=== PATIENT | male | born 1975 | race Caucasian/White ===

== ENCOUNTER 2018-06-30 23:17 | Emergency (ER) | payer OTHER ==
[~2018-06-30] VITALS: Ht 182.9 cm; Wt 90.3 kg
[~2018-06-30 23:17] MED LIST: AZIT500 PO; Ativan1 MG PO; CEPH500 PO; Colace100 MG PO; HYDACE5 PO; IBUP800 PO; MECL12.5 PO; Naprosyn500 MG PO; Norco 10-325 T1 EACH PO; OMEP20ER PO; PANT40 PO; PROCODE120 PO; RANI150 PO; RXHYDACE PO; RXIBUP800 PO; SULF10OPSA OD; SULTRIDS PO; Ultram50 MG PO; Zithromax250 MG PO; Zofran Odt4 MG SL
[2018-07-01] MEDS ORDERED: CYCL10 PO (00:02)
[2018-07-01] MEDS ORDERED: Prednisone20 MG PO (00:02)
[2018-07-01] MEDS ORDERED: Naprosyn500 MG PO (00:02)
== END 2018-07-01 00:21 | disposition home or self-care (01) ==
LOC: ER 23:17
DX: M54.42 Lumbago with sciatica, left side (principal); F17.210 Nicotine dependence, cigarettes, uncomplicated; I25.2 Old myocardial infarction; Z79.899 Other long term (current) drug therapy
CPT/HCPCS: 99283; J7512

== ENCOUNTER 2018-07-11 17:21 | Emergency (ER) | payer OTHER ==
[~2018-07-11] VITALS: Ht 182.9 cm; Wt 90.3 kg
[~2018-07-11 17:21] MED LIST changes: +CYCL10 PO; +Prednisone20 MG PO
== END 2018-07-11 19:10 | disposition home or self-care (01) ==
LOC: ER 17:21
DX: N43.3 Hydrocele, unspecified (principal); Z79.899 Other long term (current) drug therapy; F43.10 Post-traumatic stress disorder, unspecified; I25.2 Old myocardial infarction; F17.210 Nicotine dependence, cigarettes, uncomplicated
CPT/HCPCS: 76870; 99284-25

== ENCOUNTER 2020-03-24 19:16 | Emergency (ER) | payer OTHER ==
[~2020-03-24] VITALS: Ht 182.9 cm; Wt 95.2 kg
[2020-03-24 20:00] LABS: BASOPHILS ABSOLUTE AUTO 0.07 K/mm3 (0.00-0.23); BASOPHILS PERCENT AUTO 1 % (0-2); EOSINOPHILS ABSOLUTE AUTO 0.25 K/mm3 (0.00-0.68); EOSINOPHILS PERCENT AUTO 3 % (0-6); Hematocrit 47.4 % (37.0-53.0); Hemoglobin 15.7 g/dL (13.5-17.5); IMMATURE GRAN ABSOLUTE AUTO 0.04 K/mm3 (0.00-0.10); IMMATURE GRAN PERCENT AUTO 0 % (0-1); LYMPHOCYTES ABSOLUTE AUTO 3.58 K/mm3 (0.84-5.20); LYMPHOCYTES PERCENT AUTO 36 % (21-46); MONOCYTES ABSOLUTE AUTO 0.88 K/mm3 (0.16-1.47); MONOCYTES PERCENT AUTO 9 % (4-13); Mean Corpuscular HGB Conc 33.1 g/dL (31.5-36.5); Mean Corpuscular Volume 88 fL (80-100); Mean Platelet Volume 10.5 fL (9.1-12.4); NEUTROPHILS PERCENT AUTO 52 % (41-73); Platelet Count 313 K/mm3 (150-400); RDW Coefficient Variation 12.7 % (11.7-14.2); RDW Standard Deviation 40.8 fL (35.1-46.3); Red Blood Cell Count 5.42 M/mm3 (4.30-5.90); White Blood Cell Count 10.02 K/mm3 (4.00-11.30)
[2020-03-24 20:48] LABS: Alanine Aminotransfer (ALT/SGP 49 U/L (12-78); Albumin, Blood 3.7 g/dL (3.4-5.0); Albumin/Globulin Ratio 0.9 (0.8-1.8); Alk Phos 83 U/L (50-136); Anion Gap 6 mmol/L (6-16); Aspartate Aminotrans (AST/SGOT 22 U/L (12-37); Bilirubin, Total 0.4 mg/dL (0.1-1.0); Blood Urea Nitrogen 12 mg/dL (8-24); Bun/Creatinine Ratio 16.9 (12.0-20.0); CO2, Blood 27 mmol/L (21-32); Chloride, Blood 106 mmol/L (98-108); Creatinine, Blood 0.71 mg/dL (0.60-1.20); Globulin, Blood 3.9 g/dL (2.2-4.0); Glomerular Filtration Rate >60 (60-); Glucose, Blood 91 mg/dL (70-99); Potassium, Blood 3.8 mmol/L (3.5-5.5); Sodium, Blood 139 mmol/L (136-145); Total Protein, Blood 7.6 g/dL (6.4-8.2)
[2020-03-24 22:39] LABS: Source, Urine Clean Catch
[2020-03-24 22:40] LABS: Bilirubin, Urine Neg (Neg); Blood, Urine Neg (Neg); Glucose Qualitative, Urine Neg (Neg); Ketones, Urine Neg (Neg); Leukocyte Esterase, Urine Neg (Neg); Nitrite, Urine Neg (Neg); Protein, Urine Neg (Neg); Specific Gravity, Urine 1.015 (1.003-1.022); Urobilinogen, Urine NORM (Normal)
[2020-03-24 22:42] LABS: Appearance, Urine Clear (Clear); Color, Urine Yellow (P-Yellow)
== END 2020-03-24 22:40 | disposition home or self-care (01) ==
LOC: ER 19:16
PROVIDERS: Physician Assistant
DX: K52.9 Noninfective gastroenteritis and colitis, unspecified (principal); F17.210 Nicotine dependence, cigarettes, uncomplicated
CPT/HCPCS: 36415; 80053; 81003; 83690; 85025; 96360; 99284-25; J2405; J7030

== ENCOUNTER 2020-05-28 15:38 | Emergency (ER) | payer OTHER ==
[~2020-05-28] VITALS: Ht 182.9 cm; Wt 95.2 kg
[2020-05-28] MEDS ORDERED: Amoxicillin875 MG PO (16:11)
== END 2020-05-28 16:16 | disposition home or self-care (01) ==
LOC: ER 15:38
DX: H66.91 Otitis media, unspecified, right ear (principal); F17.210 Nicotine dependence, cigarettes, uncomplicated; I25.2 Old myocardial infarction
CPT/HCPCS: 99284; A9270

== ENCOUNTER 2020-11-16 06:04 | Observation (INO) | payer OTHER ==
[~2020-11-16] VITALS: Ht 182.9 cm; Wt 95.2 kg
[~2020-11-16 06:04] MED LIST changes: +Amoxicillin875 MG PO
[2020-11-16 07:02] LABS: BASOPHILS ABSOLUTE AUTO 0.08 K/mm3 (0.00-0.23); BASOPHILS PERCENT AUTO 1 % (0-2); EOSINOPHILS ABSOLUTE AUTO 0.24 K/mm3 (0.00-0.68); EOSINOPHILS PERCENT AUTO 2 % (0-6); Hematocrit 45.1 % (37.0-53.0); Hemoglobin 15.4 g/dL (13.5-17.5); IMMATURE GRAN ABSOLUTE AUTO 0.04 K/mm3 (0.00-0.10); IMMATURE GRAN PERCENT AUTO 0 % (0-1); LYMPHOCYTES ABSOLUTE AUTO 3.86 K/mm3 (0.84-5.20); LYMPHOCYTES PERCENT AUTO 28 % (21-46); MONOCYTES ABSOLUTE AUTO 1.26 K/mm3 (0.16-1.47); MONOCYTES PERCENT AUTO 9 % (4-13); Mean Corpuscular HGB 29.5 pg (26.0-34.0); Mean Corpuscular HGB Conc 34.1 g/dL (31.5-36.5); Mean Corpuscular Volume 86 fL (80-100); Mean Platelet Volume 10.4 fL (9.1-12.4); NEUTROPHILS ABSOLUTE AUTO 8.32 K/mm3 (1.96-9.15); NEUTROPHILS PERCENT AUTO 60 % (41-73); Platelet Count 325 K/mm3 (150-400); RDW Coefficient Variation 13.4 % (11.7-14.2); RDW Standard Deviation 42.5 fL (35.1-46.3); Red Blood Cell Count 5.22 M/mm3 (4.30-5.90)
[2020-11-16 07:22] LABS: Alanine Aminotransfer (ALT/SGP 31 U/L (12-78); Albumin, Blood 3.7 g/dL (3.4-5.0); Albumin/Globulin Ratio 0.9 (0.8-1.8); Alk Phos 68 U/L (50-136); Anion Gap 8 mmol/L (6-16); Aspartate Aminotrans (AST/SGOT 14 U/L (12-37); Bilirubin, Total 0.4 mg/dL (0.1-1.0); Blood Urea Nitrogen 13 mg/dL (8-24); Bun/Creatinine Ratio 13.3 (12.0-20.0); CO2, Blood 24 mmol/L (21-32); Calcium, Blood 9.1 mg/dL (8.5-10.1); Chloride, Blood 107 mmol/L (98-108); Creatinine, Blood 0.98 mg/dL (0.60-1.20); Ethanol (Alcohol), Blood, Med <3 mg/dL; Glomerular Filtration Rate >60 (60-); Glucose, Blood 110 mg/dL (70-99); Potassium, Blood 3.4 mmol/L (3.5-5.5); Salicylate 3.9 mg/dL (2.8-20.0); Sodium, Blood 139 mmol/L (136-145); Total Protein, Blood 7.7 g/dL (6.4-8.2)
[2020-11-16 07:25] LABS: Acetaminophen, Random <2.0 ug/mL (10.0-30.0)
[2020-11-16 07:56] LABS: Source, Urine Clean Catch
[2020-11-16 08:00] LABS: Bilirubin, Urine Neg (Neg); Blood, Urine Neg (Neg); Glucose Qualitative, Urine Neg (Neg); Ketones, Urine 1+ (Neg); Leukocyte Esterase, Urine Neg (Neg); Nitrite, Urine Neg (Neg); Protein, Urine Neg (Neg); Specific Gravity, Urine 1.015 (1.003-1.022); Urobilinogen, Urine NORM (Normal)
[2020-11-16 08:03] LABS: SARS-Cov-2 (COVID-19) PCR, MMC NEGATIVE (NEGATIVE)
[2020-11-16 08:03] LABS: Appearance, Urine Clear (Clear); Color, Urine Pale Yellow (P-Yellow)
[2020-11-16 08:13] LABS: U Amphetamine Screen Not Detected; U Barbituate Screen Not Detected; U Benzodiazapine Screen Not Detected; U Buprenorphine Screen Not Detected; U Cannabinoids Screen Not Detected; U Cocaine Screen Not Detected; U Methadone Screen Not Detected; U Methamphetamine Screen Not Detected; U Opiates Screen Not Detected; U Oxycodone Screen Not Detected; U Phencyclidine Screen Not Detected; U Propoxyphene Screen Not Detected
== END 2020-11-16 19:56 ==
LOC: ER 06:04 → EOR 06:05
PROVIDERS: ADMIT Emergency Medicine
DX: F33.2 Major depressive disorder, recurrent severe without psychotic features (principal); I25.2 Old myocardial infarction; F17.200 Nicotine dependence, unspecified, uncomplicated; E11.9 Type 2 diabetes mellitus without complications; Z20.822 Contact with and (suspected) exposure to COVID-19
CPT/HCPCS: 80053; 81003; 85025; 99285; A9270; G0378; G0480; Q3014; U0004

== ENCOUNTER 2020-12-15 14:05 | Emergency (ER) | payer OTHER ==
[~2020-12-15] VITALS: Ht 182.9 cm; Wt 95.2 kg
[2020-12-15] MEDS ORDERED: Prozac20 MG PO ×2 (14:18→14:52)
[2020-12-15] MEDS ORDERED: HYDHCL25 (14:18)
[2020-12-15] MEDS ORDERED: OMEP20ER PO ×2 (14:19→14:52)
[2020-12-15] MEDS ORDERED: TRAZ100 PO ×2 (14:19→14:52)
[2020-12-15] MEDS ORDERED: HYDHCL25 PO (14:52)
== END 2020-12-15 15:00 | disposition home or self-care (01) ==
LOC: ER 14:05
DX: F43.10 Post-traumatic stress disorder, unspecified (principal); Z76.0 Encounter for issue of repeat prescription; I25.2 Old myocardial infarction; F17.210 Nicotine dependence, cigarettes, uncomplicated; Z79.899 Other long term (current) drug therapy
CPT/HCPCS: 99281

== ENCOUNTER 2022-11-15 16:05 | Emergency (ER) | payer OTHER ==
[~2022-11-15] VITALS: Ht 177.8 cm; Wt 91.2 kg
[~2022-11-15 16:05] MED LIST changes: +HYDHCL25; +HYDHCL25 PO; +Prozac20 MG PO; +TRAZ100 PO
[2022-11-15 16:33] LABS: BASOPHILS PERCENT AUTO 1 % (0-2); EOSINOPHILS ABSOLUTE AUTO 0.27 K/mm3 (0.00-0.68); EOSINOPHILS PERCENT AUTO 2 % (0-6); Hematocrit 45.3 % (37.0-53.0); Hemoglobin 15.3 g/dL (13.5-17.5); IMMATURE GRAN ABSOLUTE AUTO 0.06 K/mm3 (0.00-0.10); IMMATURE GRAN PERCENT AUTO 1 % (0-1); LYMPHOCYTES ABSOLUTE AUTO 3.74 K/mm3 (0.84-5.20); LYMPHOCYTES PERCENT AUTO 33 % (21-46); MONOCYTES ABSOLUTE AUTO 1.13 K/mm3 (0.16-1.47); MONOCYTES PERCENT AUTO 10 % (4-13); Mean Corpuscular HGB 29.2 pg (26.0-34.0); Mean Corpuscular HGB Conc 33.8 g/dL (31.5-36.5); Mean Corpuscular Volume 87 fL (80-100); Mean Platelet Volume 9.6 fL (9.1-12.4); NEUTROPHILS ABSOLUTE AUTO 5.91 K/mm3 (1.96-9.15); NEUTROPHILS PERCENT AUTO 53 % (41-73); Platelet Count 327 K/mm3 (150-400); RDW Coefficient Variation 13.3 % (11.7-14.2); RDW Standard Deviation 41.8 fL (35.1-46.3); Red Blood Cell Count 5.24 M/mm3 (4.30-5.90); White Blood Cell Count 11.21 K/mm3 (4.00-11.30)
[2022-11-15 16:51] LABS: Albumin/Globulin Ratio 1.1 (0.8-1.8); Bilirubin, Total 0.6 mg/dL (0.1-1.0); Bun/Creatinine Ratio 18.3 (12.0-20.0); Calcium, Blood 9.5 mg/dL (8.5-10.1); Creatinine, Blood 0.87 mg/dL (0.60-1.20); Globulin, Blood 3.8 g/dL (2.2-4.0); Potassium, Blood 4.2 mmol/L (3.5-5.5); Total Protein, Blood 7.8 g/dL (6.4-8.2)
[2022-11-15 17:14] LABS: Influenza A, PCR NEGATIVE (NEGATIVE); Influenza B, PCR NEGATIVE (NEGATIVE); Resp Syncytial Virus, PCR NEGATIVE (NEGATIVE); SARS-Cov-2 (COVID-19) PCR, MMC NEGATIVE (NEGATIVE)
[2022-11-15 19:30] VITALS: BP 128/87
== END 2022-11-15 19:57 | disposition home or self-care (01) ==
LOC: ER 16:05
PROVIDERS: Student in an Organized Health Care Education/Training Program
DX: B34.9 Viral infection, unspecified (principal); I25.2 Old myocardial infarction; F17.210 Nicotine dependence, cigarettes, uncomplicated; Z20.822 Contact with and (suspected) exposure to COVID-19
CPT/HCPCS: 0241U; 80053; 85025; 96360; 96361; 99283-25; J7030

== ENCOUNTER 2024-06-24 16:50 | Observation (INO) | payer OTHER ==
[~2024-06-24] VITALS: Ht 177.8 cm; Wt 94.3 kg
[2024-06-24] MEDS ORDERED: CefTRIAXone Sodium 1,000 MG in NS 50 ML IV ONE (20:25)
[2024-06-24] MEDS ORDERED: MetroNIDAZOLE 500MG/NS 100 ml 100 ML IV ONE (20:25)
[2024-06-24] MEDS ORDERED: NS 1,000 ML IV SCH (20:25)
[2024-06-24] MEDS ORDERED: FentaNYL Citrate 50 MCG/ML 2 ML Injection IV ONE (20:35)
[2024-06-24] MEDS ORDERED: Ondansetron HCl 2 MG / ML 2ML Vial IV ONE (20:35)
[2024-06-24] MEDS ORDERED: Ondansetron HCl 2 MG / ML 2ML Vial IV PRN (22:40)
[2024-06-24] MEDS ORDERED: NS 1,000 ML IV ONE (22:40)
[2024-06-24] MEDS ORDERED: FentaNYL Citrate 50 MCG/ML 2 ML Injection IV PRN (22:40)
[2024-06-24] MEDS ORDERED: Acetaminophen 325 MG TABLET PO PRN (22:40)
[2024-06-25] VITALS (20 sets, daily range): BP systolic 112–154; BP diastolic 68–93
[2024-06-25] MEDS ORDERED: Ampicillin Sod/Sulbactam Sod 3 GM in NS 100 ML IV SCH
--- NOTE | 2024-06-25 05:01 | NUR ---
ORTHOPEDIC DESIGNER SUMMARY PT IS A NEW ADMIT FROM THE ED TONIGHT, HERE FOR ACUTE APPY. PT TO HAVE SURGERY LATER TODAY. AAOX4 AND PLEASANT. INDEPENDENT WITH AMBULATION. NPO SINCE MIDNIGHT. PT REPORTS LLQ ABD PAIN IS MINIMAL WHILE RESTING AND ONLY BOTHERS HIM WHEN HE'S AMBULATING. PT HAS DENIED NEEDING PAIN MEDS THUS FAR. DENIES NAUESEA. VSS, WILL CONTINUE TO MONITOR.
[2024-06-25 05:03] LABS: BASOPHILS ABSOLUTE AUTO 0.08 K/mm3 (0.00-0.23); BASOPHILS PERCENT AUTO 1 % (0-2); EOSINOPHILS ABSOLUTE AUTO 0.22 K/mm3 (0.00-0.68); EOSINOPHILS PERCENT AUTO 2 % (0-6); Hematocrit 40.9 % (37.0-53.0); Hemoglobin 14.3 g/dL (13.5-17.5); IMMATURE GRAN ABSOLUTE AUTO 0.04 K/mm3 (0.00-0.10); IMMATURE GRAN PERCENT AUTO 0 % (0-1); LYMPHOCYTES ABSOLUTE AUTO 3.49 K/mm3 (0.84-5.20); LYMPHOCYTES PERCENT AUTO 29 % (21-46); MONOCYTES PERCENT AUTO 12 % (4-13); Mean Corpuscular HGB 29.2 pg (26.0-34.0); Mean Corpuscular Volume 84 fL (80-100); Mean Platelet Volume 10.3 fL (9.1-12.4); NEUTROPHILS ABSOLUTE AUTO 6.84 K/mm3 (1.96-9.15); NEUTROPHILS PERCENT AUTO 56 % (41-73); Platelet Count 252 K/mm3 (150-400); RDW Coefficient Variation 12.4 % (11.7-14.2); RDW Standard Deviation 37.8 fL (35.1-46.3); White Blood Cell Count 12.17 K/mm3 (4.00-11.30)
[2024-06-25 05:54] LABS: Albumin, Blood 2.8 g/dL (3.4-5.0); Albumin/Globulin Ratio 0.8 (0.8-1.8); Bilirubin, Total 0.3 mg/dL (0.1-1.0); Bun/Creatinine Ratio 21.4 (12.0-20.0); Calcium, Blood 8.5 mg/dL (8.5-10.1); Creatinine, Blood 0.7 mg/dL (0.60-1.20); Globulin, Blood 3.6 g/dL (2.2-4.0); Potassium, Blood 3.6 mmol/L (3.5-5.5); Total Protein, Blood 6.4 g/dL (6.4-8.2)
[2024-06-25] MEDS ORDERED: Insulin Human Lispro 100 Units/ML 3ML Syringe SC SCH ×4 (07:30→16:30)
[2024-06-25] MEDS ORDERED: HYDROmorphone HCl/Pf 1MG SYR IV PRN (08:40)
[2024-06-25] MEDS ORDERED: Prochlorperazine Edisylate 10 mg Vial IV PRN (08:40)
[2024-06-25] MEDS ORDERED: Polyethylene Glycol 3350 17 gm PO PRN (08:40)
[2024-06-25] MEDS ORDERED: Naloxone HCl 0.4MG / ML 1ML Vial IV PRN (08:40)
[2024-06-25] MEDS ORDERED: LORazepam 2 MG/ML 1ML Injection IV PRN (08:45)
[2024-06-25] MEDS ORDERED: Ketorolac Tromethamine 15mg Vial IV PRN (08:50)
[2024-06-25] MEDS ORDERED: Docusate Sodium 100 MG Cap PO SCH (09:00)
[2024-06-25] MEDS ORDERED: Insulin Human Lispro 100 Units/ML 3ML Syringe SC ONE ×2 (10:00→10:35)
[2024-06-25] MEDS ORDERED: NS 1,000 ML IV SCH (10:25)
[2024-06-25] MEDS ORDERED: Bupivacaine 0.25% Epi 1:200000 30 ML Vial ONE (11:15)
[2024-06-25] MEDS ORDERED: FentaNYL Citrate 50 MCG/ML 2 ML Injection ONE (11:17)
[2024-06-25] MEDS ORDERED: propofoL 20 ML IV ONE (11:17)
[2024-06-25] MEDS ORDERED: Dexamethasone Sod Phos 10 MG/ML 1ML VIAL ONE (11:19)
[2024-06-25] MEDS ORDERED: Ondansetron HCl 2 MG / ML 2ML Vial ONE (11:19)
[2024-06-25] MEDS ORDERED: SuccINYLCHOLINE Chloride 100 MG/5 ML 5MLSYR ONE (11:19)
[2024-06-25] MEDS ORDERED: Rocuronium Bromide 10 MG/ML 5ML Injection IV ONE (11:19)
[2024-06-25] MEDS ORDERED: HYDROmorphone HCl/Pf 1MG SYR ONE (11:49)
[2024-06-25] MEDS ORDERED: Sugammadex Sodium 200 MG/2ML SDV (100 MG/ML) ONE (12:13)
--- NOTE | 2024-06-25 12:19 | NUR ---
PT TAKEN TO DAY SURGERY AT 11:20. KALINA RUTLEDGE NOTIFIED OF BLOOD GLUCOSE OF 219.
[2024-06-25] MEDS ORDERED: OxyCODONE HCL 5 MG TAB PO PRN (13:25)
--- NOTE | 2024-06-25 14:10 | NUR ---
PT ARRIVED BACK TO THE ROOM FROM PACU. PT IS ALERT/ORIENTED. PAIN MANAGED. VSS. PT ON 4L O2 VIA NC. CALL LIGHT PLACED WITHIN REACH.
--- NOTE | 2024-06-25 19:33 | NUR ---
SHIFT SUMMARY PT IS POD#[address] OLMOS. PAIN MANAGED WITH PO PAIN MEDICATION. DIET HAS BEEN ADVANCED TO REGULAR. PT WAS EDUCATED TO START WITH SMALL AMOUNTS AND EAT SLOWLY, PT ATE SLOWLY BUT CONSUMED 100% OF HIS DINNER TRAY. PT HAS BEEN AMBULATING IN THE HALLWAYS. HE REPORTS HE HAS BEEN ABLE TO PASS FLATUS. PT'S S/O IS AT THE BEDSIDE FOR SUPPORT. BEDSIDE REPORT GIVEN TO CHANO RUTLEDGE.
[2024-06-25] MEDS ORDERED: TraZODone HCl 100 MG Tab PO SCH (21:00)
[2024-06-26 00:12] VITALS: BP 128/90
[2024-06-26 04:55] LABS: Hemoglobin 13.2 g/dL (13.5-17.5); Mean Corpuscular HGB 29.1 pg (26.0-34.0); Mean Corpuscular HGB Conc 34.7 g/dL (31.5-36.5); Mean Corpuscular Volume 84 fL (80-100); Mean Platelet Volume 10.4 fL (9.1-12.4); Platelet Count 261 K/mm3 (150-400); RDW Coefficient Variation 12.3 % (11.7-14.2); RDW Standard Deviation 36.9 fL (35.1-46.3); Red Blood Cell Count 4.54 M/mm3 (4.30-5.90); White Blood Cell Count 11.28 K/mm3 (4.00-11.30)
[2024-06-26 05:05] VITALS: BP 135/87
[2024-06-26 05:26] LABS: Albumin, Blood 2.8 g/dL (3.4-5.0); Albumin/Globulin Ratio 0.8 (0.8-1.8); Bilirubin, Total 0.6 mg/dL (0.1-1.0); Bun/Creatinine Ratio 17.7 (12.0-20.0); Calcium, Blood 8.3 mg/dL (8.5-10.1); Creatinine, Blood 0.62 mg/dL (0.60-1.20); Globulin, Blood 3.7 g/dL (2.2-4.0); Magnesium, Blood 2.1 mg/dL (1.6-2.4); Potassium, Blood 3.8 mmol/L (3.5-5.5); Total Protein, Blood 6.5 g/dL (6.4-8.2)
--- NOTE | 2024-06-26 05:37 | NUR ---
SHIFT SUMMARY PT POD 0 LAP FRANDY. PT HAS BEEN UP AND AMBULATING, VOIDING, TOLERATING PO INTAKE. APPETITE IS GOOD. SURGICAL SITE WNL. PAIN CONTROLLED WITH MEDS PER EMAR. PT REPORTS CONSTIPATION, REPORTS THAT HIS LAST BM WAS ON WEDNESDAY 06/21, BOWEL CARE STARTED. IV ANTIBIOTICS PER EMAR. BG IN THE 300'S WITH HS CHECK. PT EDUCATED ON APPROPRIATE DIET MODIFICATIONS TO BETTER CONTROL BG. PT COVERED PER SCALE, BG DOWN TO THE 2OO'S WITH AM LAB CHECK. PLAN OF CARE REMAINS UNCHANGED, BED IN LOWEST POSITION, CALL LIGHT WITHIN REACH.
[2024-06-26 07:11] VITALS: BP 120/88
[2024-06-26] MEDS ORDERED: OXYC5 PO (12:11)
[2024-06-26] MEDS ORDERED: METF500 PO (12:11)
[2024-06-26] MEDS ORDERED: LEVOFLOXACIN750 MG PO (12:11)
[2024-06-26] MEDS ORDERED: SENN187 PO (12:13)
--- NOTE | 2024-06-26 13:02 | NUR ---
DC INSTRUCT REVIEWED. STATED UNDERSTANDING. HANDWRITTEN RX OXYCODONE, PRINTED INSTRUCT, PRINTED DIABETIC EDUCATION DISPENSED AND DISCUSSED. STATED UNDERTANDING. DC'D TO PO AMBULATORY WITH ABOVE DOCUMENTS.
== END 2024-06-26 13:15 | disposition home or self-care (01) ==
LOC: ER 16:50 → SURS 16:51
PROVIDERS: Hospitalist; Surgery; ADMIT Internal Medicine
PROC: 0DTJ4ZZ Resection of Appendix, Percutaneous Endoscopic Approach (ICD-10-PCS; principal; 2024-06-25 12:30)
DX: K35.30 Acute appendicitis with localized peritonitis, without perforation or gangrene (principal); K38.1 Appendicular concretions; I25.2 Old myocardial infarction; E11.65 Type 2 diabetes mellitus with hyperglycemia; K21.9 Gastro-esophageal reflux disease without esophagitis; K76.0 Fatty (change of) liver, not elsewhere classified; F17.290 Nicotine dependence, other tobacco product, uncomplicated; Z79.899 Other long term (current) drug therapy
CPT/HCPCS: 36415; 80053; 82947; 83036; 83605; 83690; 83735; 83880; 85025; 85027; 87040; 88304; 93005; 93010; 96365; 96366; 96367; 96375; 96376; 99285-25; A9270; G0378; J0295; J0330; J0696; J1100; J1171; J2405; J2704; J3010; J7030

== ENCOUNTER → 2024-06-24 | Outpatient (CLI) | payer OTHER | LOC: LAB SHORT 14:42 → LAB 14:42 | DX: R10.31 Right lower quadrant pain (principal) ==